=== PATIENT | male | born 1985 | race Caucasian/White ===

== ENCOUNTER 2018-05-24 13:30 | Emergency (ER) | payer SELFPAY ==
[2018-05-24 13:38] VITALS: BMI 65.6
--- NOTE | 2018-05-24 14:12 | PDOC ---
History of Present Illness - General History Source: Patient Exam Limitations: No Limitations - History of Present Illness Initial Comments: 05/24/18 15:49 CC: Chest pain. HPI: The patient is a 32 year old male, with a significant past medical history of HTN (well-controlled with diet and exercise), who presents to the emergency department s/p chest pain. As per patient 3 hours prior to his arrival he experienced a 20 minute episode of chest pain. He describes this pain as a tightness with associated shortness of breath, lightheadedness, and dizziness. His symptoms subsided after sitting down. Patient also endorses elevated blood pressure readings over the past week. While in the ER, the patient is asymptomatic. He denies any recent fevers, chills, or headache. He denies any recent nausea, vomit, diarrhea or constipation. He denies any recent dysuria, frequency, urgency or hematuria. Allergies: NKDA Past surgical history: None reported. Social History: Cocaine usage (Quit 1 year ago). <Rachelle Lazaro - Last Filed: 05/24/18 15:48> <Umer Escamilla - Last Filed: 05/25/18 13:22> - General Chief Complaint: Chest Pain Stated Complaint: CHEST PAIN Time Seen by Provider: 05/24/18 14:06 Past History <Rachelle Lazaro - Last Filed: 05/24/18 15:48> - Past Medical History COPD: No - Suicide/Smoking/Psychosocial Hx Smoking History: Never smoked Have you smoked in the past 12 months: No Information on smoking cessation initiated: No Hx Alcohol Use: Yes Drug/Substance Use Hx: No Substance Use Type: Alcohol <Umer Escamilla - Last Filed: 05/25/18 13:22> - Past Medical History Allergies/Adverse Reactions: Allergies Allergy/AdvReac Type Severity Reaction Status Date / Time No Known Allergies Allergy Unverified 05/24/18 15:07 Home Medications: Ambulatory Orders NK [No Known Home Medication] 05/24/18 Review of Systems - Review of Systems Able to Perform ROS?: Yes Comments:: 05/24/18 15:49 ROS: A complete review of 10 out of 10 review of systems is taken and is negative apart from what is previously mentioned below and in the HPI. <Rachelle Lazaro - Last Filed: 05/24/18 15:48> *Physical Exam - Vital Signs Last Vital Signs Temp Pulse Resp BP Pulse Ox 98.2 F 70 20 156/78 100 05/24/18 13:34 05/24/18 13:34 05/24/18 13:34 05/24/18 13:34 05/24/18 13:34 - Physical Exam Comments: 05/24/18 15:49 Exam: Vitals: Triage Vital signs reviewed General Appearance: no acute distress, well nourished well developed, Head: Atraumatic, normocephalic Nose: No nasal congestion Neck: Supple;No Nuchal rigidity Chest Wall: Nontender Cardiac: Regular rate and rhythm, no murmurs, no rubs, no gallops, Lungs: Clear to auscultation bilateral, good air movement bilaterally, Abdomen: Soft, nondistended, normal bowel sounds, nontender to palpation Rectal: Exam deferred Extremities: Full range of motion to all extremities, no cyanosis, clubbing, or edema Skin: Warm and dry, no rashes or lesions, no petechiae Neuro: AOX3; Cranial Nerves 2-12 grossly intact, Strength intact to all extremities, Sensation intact to all extremities Psych: normal mood, normal affect <Rachelle Lazaro - Last Filed: 05/24/18 15:48> - Vital Signs Last Vital Signs Temp Pulse Resp BP Pulse Ox 98.2 F 70 20 156/78 100 05/24/18 13:34 05/24/18 13:34 05/24/18 13:34 05/24/18 13:34 05/24/18 13:34 <Umer Escamilla - Last Filed: 05/25/18 13:22> Heart Score/ECG Review - History History: Slightly suspicious - Electrocardiogram EKG: Normal - Age Age: </= 45 - Risk Factors Risk Factors Heart Score: Yes Hx Hypertension Based on the list above the patient has:: No risk factors known - Troponin Troponin: </= normal limit - Score Heart Score - Total: 0 - ECG Impressions Comment:: 05/24/18 17:25EKG performed at 1718 demonstrates normal sinus rhythm no ST elevations or T-wave inversions. Interpreted by me. <Umer Escamilla - Last Filed: 05/25/18 13:22> ED Treatment Course - LABORATORY CBC & Chemistry Diagram: 05/24/18 15:08 05/24/18 15:08 - ADDITIONAL ORDERS Additional order review: 05/24/18 15:08 RBC 5.20 MCV 87.7 MCHC 34.0 RDW 12.7 MPV 9.4 Neutrophils % 77.2 Lymphocytes % 15.4 Monocytes % 5.8 Eosinophils % 1.1 Basophils % 0.5 <Rachelle Lazaro - Last Filed: 05/24/18 15:48> - LABORATORY CBC & Chemistry Diagram: 05/24/18 15:08 05/24/18 15:08 <Umer Escamilla - Last Filed: 05/25/18 13:22> Medical Decision Making - Medical Decision Making 05/24/18 15:49 32 year old male with history of HTN presents to the ED s/p chest pain. Plan: Chest x-ray EKG Cardiac enzymes <Rachelle Lazaro - Last Filed: 05/24/18 15:48> - Medical Decision Making Atypical chest discomfort. Heart score 1. Nonischemic EKG troponin negative. PERC NEGATIVE Findings, the need for follow-up and strict return instructions discussed patient. <Umer Escamilla - Last Filed: 05/25/18 13:22> *DC/Admit/Observation/Transfer - Attestations Scribe Attestion: 05/24/18 15:49 Documentation prepared by Rachelle Lazaro, acting as emergency medical services coordinator for Umer Escamilla MD. <Rachelle Lazaro - Last Filed: 05/24/18 15:48> - Discharge Dispostion Decision to Admit order: No <Umer Escamilla - Last Filed: 05/25/18 13:22> Diagnosis at time of Disposition: Atypical chest pain - Discharge Dispostion Disposition: HOME - Referrals Referrals: [facility] [place] [facility] [place] [Provider Group] - Patient Instructions Printed Discharge Instructions: DI for Atypical Chest Pain Additional Instructions: Follow-up with your primary care provider in 2-3 days. Return to the emergency department for any severe worsening symptoms or for any concerns. He can also follow up with her clinic if unable to obtain an appointment. Print Language: YI
[2018-05-24 15:25] LABS: BASO % 0.5 % (0-2.0); EOS % 1.1 % (0-4.5); HEMATOCRIT 45.5 % (35.4-49); HEMOGLOBIN 15.5 GM/dL (11.7-16.9); LYMPH % 15.4 % (8-40); MCH 29.8 pg (25.7-33.7); MEAN CELL VOLUME 87.7 fl (80-96); MEAN PLT VOLUME 9.4 fl (7.5-11.1); MONO % 5.8 % (3.8-10.2); NEUT % 77.2 % (42.8-82.8); PLATELET COUNT 215 K/MM3 (134-434); RDW 12.7 % (11.9-15.9); WHITE BLOOD COUNT 6.8 K/mm3 (4.0-10.0)
[2018-05-24 16:03] LABS: ALBUMIN 4.1 g/dl (3.4-5.0); ALK PHOS 101 U/L (45-117); ANION GAP 9 MMOL/L (8-16); BILIRUBIN,TOTAL 0.5 mg/dL (0.2-1); BLOOD UREA NITROGEN 14 mg/dL (7-18); CALCIUM 9.3 mg/dL (8.5-10.1); CHLORIDE 104 mmol/L (98-107); CO2 28 mmol/L (21-32); CREATININE 0.9 mg/dL (0.55-1.3); GLUCOSE,RANDOM 88 mg/dL (74-106); POTASSIUM 4.4 mmol/L (3.5-5.1); SGOT/AST 20 U/L (15-37); SGPT/ALT 36 U/L (13-61); SODIUM 141 mmol/L (136-145)
[2018-05-24 17:46] VITALS: BP 138/78; PULSE 78; TEMP 98.3
--- NOTE | 2018-05-25 09:38 | EKG ---
Test Reason : Blood Pressure : / mmHG Vent. Rate : 068 BPM Atrial Rate : 068 BPM P-R Int : 172 ms QRS Dur : 104 ms QT Int : 388 ms P-R-T Axes : 026 256 021 degrees QTc Int : 412 ms NORMAL SINUS RHYTHM RIGHT SUPERIOR AXIS DEVIATION INCOMPLETE RIGHT BUNDLE BRANCH BLOCK ABNORMAL ECG NO PREVIOUS ECGS AVAILABLE Confirmed by KIMBERLY BROUSSARD MD ([id number]) on 05/25/2018 9:37:51 AM Referred By: Confirmed By:KIMBERLY BROUSSARD MD
== END 2018-05-24 17:40 | disposition home or self-care (01) ==
LOC: JER 13:30 → EDSEX 13:30 → JER 17:40
DX: R07.89 Other chest pain (principal); I10 Essential (primary) hypertension
CPT/HCPCS: 36415; 71046-TC-FY; 80048; 80053; 84484; 85025; 93005; 93010; 99283-25